=== PATIENT | female | born 1945 | race Hispanic/Latino ===

== ENCOUNTER 2019-12-25 18:34 | Inpatient (IN) | payer MEDICARE ==
[~2019-12-25] VITALS: Ht 152.4 cm; Wt 53.5 kg
[2019-12-25] MEDS ORDERED: SODIUM CHLORIDE 0.9% 1000ML 1,000 ML IV STA (18:51)
[2019-12-25] MEDS ORDERED: ONDANSETRON HCL INJ 2MG/ML 2ML 2 MG/ML VIAL IV STA (18:51)
[2019-12-25] MEDS ORDERED: SODIUM CHLORIDE 0.9% 1000ML 1,000 ML ONE (19:23)
[2019-12-25] MEDS ORDERED: ONDANSETRON HCL INJ 2MG/ML 2ML 2 MG/ML VIAL ONE (19:23)
--- NOTE | 2019-12-25 19:44 | Diagnostic Imaging Report ---
Examination: Single AP view of the chest. COMPARISON: None. INDICATION: Chest pain for 2 months IMPRESSION: 1. Lines and Tubes: None 2. Lungs are well-inflated and grossly clear. No consolidation or effusion. 3. Cardiomediastinal silhouette is normal. Pulmonary vasculature is normal. Tortuous aorta. 4. Generalized osteopenia. No acute bony abnormalities. Deformity multiple right sided ribs. Associated as shaped scoliosis of the thoracolumbar spine. Anterior fusion plate in the lower cervical cervical spine. Signed by: Dr. Kj Medel M.D. on 12/25/2019 7:41 PM
--- NOTE | 2019-12-25 19:50 | Diagnostic Imaging Report ---
EXAMINATION: CT of the abdomen and pelvis without contrast. TECHNIQUE: Spiral CT images of the abdomen and pelvis were performed from the lung bases to the lesser trochanters. No intravenous contrast was given per physician's request. Coronal and sagittal reformatted images were obtained. COMPARISON: None. CLINICAL HISTORY:Nausea, diarrhea, abdominal pain, history of lymphoma DISCUSSION: ABSENCE OF INTRAVENOUS CONTRAST DECREASES SENSITIVITY FOR DETECTION OF FOCAL LESIONS AND VASCULAR PATHOLOGY. ABDOMEN/PELVIS: LOWER THORAX: Unremarkable. HEPATOBILIARY: 1.3 cm simple cyst in hepatic segment IV/II (series 2, image 21). No intra or extrahepatic biliary ductal dilation. GALLBLADDER: No radio-opaque stones or sludge. No wall thickening. SPLEEN: No splenomegaly. PANCREAS: No focal masses or ductal dilatation. ADRENALS: No adrenal nodules. KIDNEYS/URETERS: No renal or ureteral calculi, hydronephrosis or obstruction. No contour abnormalities or perinephric stranding. PELVIC ORGANS/BLADDER: Bladder is unremarkable. No wall thickening or focal lesions. 4-5 mm calcification in the uterine fundus (series 2, images 64 and 66), likely represent small calcified fibroids. Multiple pelvic phleboliths. 1.7 and 1.9 cm fluid density simple appearing cystic lesions in the right ovary (series 2, images 62 and 64). PERITONEUM/RETROPERITONEUM: No free air or fluid. LYMPH NODES: No intra-abdominal,retroperitoneal, pelvic or inguinal lymphadenopathy. VESSELS: Atherosclerotic calcification of the abdominal aorta and iliac vessels. GI TRACT: No bowel dilation or evidence of obstruction. No pericolonic inflammatory changes. Stomach is unremarkable. BONES AND SOFT TISSUES: No aggressive lytic or suspicious focal sclerotic lesions. Generalized osteopenia. Multilevel degenerative disks in the lower thoracic and lumbosacral spine, worse at L5-S1. Levoscoliosis of the thoracolumbar spine. Soft tissues are grossly unremarkable. IMPRESSION: 1. Exam limited by lack of intravenous contrast. Despite limitations, no acute abdominopelvic abnormalities. No bowel dilation or evidence of obstruction. 2. Simple cystic lesions in the right ovary can be further assessed with transvaginal ultrasound on a nonemergent basis. Signed by: Dr. Kj Medel M.D. on 12/25/2019 7:47 PM
--- NOTE | 2019-12-25 20:42 | Emergency Department Note ---
History of Present Illnes History of Present Illness Chief Complaint: General Medicine Complaints History of Present Illness This is a 74 year old female C CC ABDOMINAL PAIN . Historian: Patient, Family Member Arrival Mode: Car Onset (how long ago): day(s) (3) Location: EPIGASTRIC Quality: DULL Radiation: Denies non-radiation, Denies back, Denies neck, Denies extremity, Denies abdomen, Denies periumbilical, Denies flank, Denies proximal, Denies distal, Denies other Severity: moderate Onset quality: gradual Duration (how long): day(s) (3) Timing of current episode: intermittent Progression: waxing and waning Chronicity: new Context: Denies recent illness, Denies recent surgery, Denies recent immobilization, Denies recent travel, Denies trauma/injury, Denies new medications, Denies hx of DVT/PE, Denies non-compliance w/ medications, Denies other Relieving factors: none Exacerbating factors: none Associated symptoms: Reports nausea/vomiting; Denies denies other symptoms, Denies confusion, Denies chest pain, Denies cough, Denies diaphoresis, Denies fever/chills, Denies headaches, Denies loss of appetite, Denies malaise, Denies rash, Denies seizure, Denies shortness of breath, Denies syncope, Denies weakness, Denies other Treatments prior to arrival: none Past Medical/Family History Physician Review I have reviewed the patient's past medical and family history. Any updates have been documented here. Past Medical History Recent Fever: No Clinical Suspicion of Infectio: No New/Unexplained Change in Ment: No Past Medical History: Hypertension, Cancer, GERD Other Medical History: LYMPHOMA Other Surgery: NON SPECIFIC NECK SX LYMPH NODE ON NECK ALSO REMOVED. Social History Smoking Cessation: Never Smoker Counseling Performed: No Alcohol Use: None Any Illegal Drug Use: No Physically hurt or threatened: No Other Any Pre-Existing Lines (PICC,: No Review of Systems Review of Systems Constitutional: Reports no symptoms EENTM: Reports no symptoms Cardiovascular: Reports no symptoms Respiratory: Reports no symptoms Gastrointestinal: Reports as per HPI Genitourinary: Reports no symptoms Musculoskeletal: Reports no symptoms Integumentary: Reports no symptoms Neurological: Reports no symptoms Psychological: Reports no symptoms Endocrine: Reports no symptoms Hematological/Lymphatic: Reports no symptoms Physical Exam Related Data Allergies: Uncoded Allergies: UNKNOWN CHEMO (Allergy, Unknown, 12/25/19) Triage Vital Signs Vital Signs Date Time Temp Pulse Resp B/P (MAP) Pulse Ox O2 Delivery O2 Flow Rate FiO2 12/25/19 18:48 98.2 95 16 180/98 98 Room Air Vital signs reviewed: Yes Physical Exam CONSTITUTIONAL Constitutional: Present well-developed, Present well-nourished HENT HENT: Present normocephalic, Present atraumatic, Present oropharynx clear/moist, Present nose normal HENT L/R: Present left ext ear normal, Present right ext ear normal EYES Eyes: Reports PERRL, Reports conjunctivae normal NECK Neck: Present ROM normal PULMONARY Pulmonary: Present effort normal, Present breath sounds normal CARDIOVASCULAR Cardiovascular: Present regular rhythm, Present heart sounds normal, Present capillary refill normal, Present normal rate GASTROINTESTINAL Abdominal: Present soft, Present nontender, Present bowel sounds normal GENITOURINARY Genitourinary: Present exam deferred SKIN Skin: Present warm, Present dry MUSCULOSKELETAL Musculoskeletal: Present ROM normal NEUROLOGICAL Neurological: Present alert, Present oriented x 3, Present no gross motor or sensory deficits PSYCHOLOGICAL Psychological: Present mood/affect normal, Present judgement normal Results Laboratory Lab results reviewed: Yes Imaging Imaging results reviewed: Yes Procedures 12 Lead ECG Interpretation ECG Interpretation : ECG: ECG 1 Clinical Documentation Specialist: Interpreted by ED physician Date: Dec 25, 2019 Time: 19:09 Rhythm: sinus rhythm Rate: normal BPM: 83 QRS axis: normal ST segments normal: Yes T waves normal: Yes Assessment & Plan Medical Decision Making MDM GASTRITIS GALL STONES Reassessment Reassessment BETTER Assessment & Plan Final Impression: (1) Abdominal pain (2) Uncontrolled hypertension Depart Disposition: HOME, SELF-CARE Last Vital Signs Date Time Temp Pulse Resp B/P (MAP) Pulse Ox O2 Delivery O2 Flow Rate FiO2 12/25/19 19:59 95 15 157/87 98 Room Air 12/25/19 18:48 98.2 Medications in the ED Ondansetron HCl 4 mg NOW STAT IV Last administered on 12/25/19at 19:20; Admin Dose 4 MG; Start 12/25/19 at 18:51; Stop 12/25/19 at 18:57; Status DC Sodium Chloride 1,000 ml @ 0 mls/hr Q0M STAT IV Last administered on 12/25/19at 19:20; Admin Dose 999 MLS/HR; Start 12/25/19 at 18:51; Stop 12/25/19 at 18:53; Status DC Ondansetron HCl 4 mg STK-MED ONCE .ROUTE ; Start 12/25/19 at 19:23; Stop 12/25/19 at 19:18; Status DC Sodium Chloride 1,000 ml @ ud STK-MED ONCE .ROUTE ; Start 12/25/19 at 19:23; Stop 12/25/19 at 19:18; Status DC RONALD CARPIO MD Dec 25, 2019 20:42
[2019-12-25] MEDS ORDERED: CLONIDINE HCL 0.2 MG TAB PO PRN (20:45)
[2019-12-25 21:30] VITALS: BP 149/76
[2019-12-25 22:00] VITALS: BP 149/76
[2019-12-25] MEDS: SODIUM CHLORIDE 0.9% 1000ML 1,000 ML IV SCH (23:28)
[2019-12-26] VITALS (8 sets, daily range): BP systolic 114–141; BP diastolic 70–85
[2019-12-26] MEDS ORDERED: ASPIRIN81 MG PO (00:12)
[2019-12-26] MEDS ORDERED: ATENOLOL25 MG PO (00:12)
[2019-12-26 05:41] LABS: BASOPHILS # (AUTO) 0.1 (0.0-0.1); BASOPHILS % 0.8 % (0.0-1.0); EOSINOPHILS # (AUTO) 0.2 (0.0-0.4); EOSINOPHILS % 3.7 % (0.0-6.0); LYMPHOCYTES % 31.9 % (18.0-39.1); MEAN CORPUSCULAR HEMOGLOBIN 29.6 pg (28-32); MEAN CORPUSCULAR HGB CONC 32.4 g/dL (31-35); MEAN CORPUSCULAR VOLUME 91.1 fL (81-99); MONOCYTES # (AUTO) 0.6 (0.2-0.8); MONOCYTES % 9.7 % (4.4-11.3); NEUTROPHILS # (AUTO) 3.3 (2.1-6.9); NEUTROPHILS % 53.6 % (38.7-80.0); PLATELET COUNT 217 x10e3/uL (140-360); RED BLOOD COUNT 4.06 x10e6/uL (3.6-5.1); RED CELL DISTRIBUTION WIDTH 12.9 % (11.7-14.4)
[2019-12-26 06:00] LABS: ALANINE AMINOTRANSFERASE 14 IU/L (0-55); ALBUMIN 3.6 g/dL (3.5-5.0); ALBUMIN/GLOBULIN RATIO 1.6 (0.8-2.0); ALKALINE PHOSPHATASE 65 IU/L (40-150); BLOOD UREA NITROGEN 10 mg/dL (7-26); BUN/CREATININE RATIO 14 (6-25); CARBON DIOXIDE 26 mmol/L (22-29); CHLORIDE 111 mmol/L (98-107); EST GLOMERULAR FILTRATION RATE > 60 ML/MIN (60-); GLUCOSE 92 mg/dL (74-118); SODIUM 142 mmol/L (136-145)
[2019-12-26] MEDS: SODIUM CHLORIDE 0.9% 1000ML 1,000 ML IV SCH ×3 (06:07→23:20)
--- NOTE | 2019-12-26 07:00 | NUR ---
RECEIVED BEDSIDE SHIFT REPORT FROM OFF GOING NIGHT NURSE. PATIENT IN STABLE CONDITION, NO S/S OF DISTRESS NOTED. RESPIRATIONS EVEN AND NON-LABORED. NO PAIN VOICED. IV SITE ASYMPTOMATIC AND PATENT, TRANSPARENT DRESSING C/D/I. BED IN LOWEST POSITION AND LOCKED, SIDE RAILS X2. CALL LIGHT WITHIN REACH.
--- NOTE | 2019-12-26 07:25 | NUR ---
REPORT GIVEN TO DAYSHIFT. ALERT AND ORIENTED. RESTING IN BED. NO SIGNS IV INFILTRATION. BED LOCKED AND IN LOW POSITION. CALL LIGHT WITHIN REACH.
[2019-12-26] MEDS ORDERED: PNEUMOCOCCAL VACCINE POLYVALENT 23 MCG/0.5 ML VIAL IM SCH (09:00)
[2019-12-26] MEDS ORDERED: INFLUENZA VIRUS VAC SPLIT INJ 0.5 ML SYR IM SCH (09:00)
[2019-12-26] MEDS: FAMOTIDINE 20 MG/2 ML VIAL IV SCH ×2 (09:11→17:02)
--- OUTSIDE RECORDS SUMMARY | 2019-12-26 10:33 | XMS REPORT | Continuity of Care Document ---
Author Author [facility] t Organization [facility] Address [address] [place] [address] Phone Unavailable Care Team Providers Care Bow Maker Custom Name Role Phone YOUSIF RUIZ PCP Unavailable RONALD CARPIO Attphys Unavailable YOUSIF RUIZ Attphys Unavailable KASEY GUAN Attphys Unavailable MARY DUBOSE Attphyjessenia Unavailable Payers Payer Name Policy Type Policy Number Effective Date Expiration Date S donna [employer] CHO[employer] MEDICARE PPO [id number] 2015 00:00:00 Problems This patient has no known problems. Allergies, Adverse Reactions, Alerts Allergy Name Allergy Type Status Severity Reaction(s) Onset Date Inacti ve Date Treating Clinician Comments Source No Known Allergies DA Active U 2013-11-09 00:00:[address] [facility] Medications This patient has no known medications. Vital Signs Vital Name Observation Time Observation Value Comments Source WEIGHT 2019-12-17 14:59:00 55.2 kg Procedures This patient has no known procedures. Encounters Start Date/Time End Date/Time [facility] ID Source 2019-12-17 16:00:00 2019-12-17 23:59:00 Outpatient YOUSIF SMITH MDA, MDA [id number] [place] 2019-12-17 14:51:36 2019-12-17 16:05:44 Outpatient REMBERTO WHEELER MDA, MDA [id number] [place] 2019-12-17 14:38:26 2019-12-17 15:59:00 Outpatient JORDAN PARRA MDA, MDA [id number] [facility] 2019-12-05 09:52:54 2019-12-05 09:52:54 Outpatient ZEKE GRACY JORDAN Mason MDA MDA [id number] MD Carmen 2019-12-04 13:01:30 2019-12-04 13:59:17 Outpatient YOUSIF SMITH MDA MDA [id number] [place] 2019-11-27 00:00:00 2019-11-27 00:00:00 Outpatient ZEKE DENISE DUBOSEMARQUIS Marlon ARREOLA MDA [id number] [place] 2019-11-27 00:00:00 2019-11-27 00:00:00 Outpatient YOUSIF SMITH MDA MDA [id number] MD Carmen 2019-11-26 16:06:23 2019-11-26 23:59:00 Outpatient JORDAN PARRA MDA MDA [id number] [place] 2019-11-26 15:44:34 2019-11-26 16:05:00 Outpatient ZEKE JORDAN DUBOSE MDA MDA [id number] MD Carmen Results Test Description Test Time Test Comments Results Result Comments Source CT ABD/PEL WO CONTRAST-HOPD 2019-12-25 19:41:00 [place] [address] Patient Name: GALILEO ALMANZA MR #: [id number] : 1945 Age/Sex: 74/F Req #: [id number] [facility] Physician: Ordered by: RONALD CARPIO MD Report #: [id number] Location: [facility] Room/Bed: Procedure: [id number] HOPD/CT ABD/PEL WO CONTRAST-HOPD Exam Date: 12/25/19 Exam Time: 1929 REPORT STATUS: Signed EXAMINATION: CT of the abdomen and pelvis without contrast. TECHNIQUE: Spiral CT images of the abdomen and pelvis were performed from the lung bases to the lesser trochanters. No intravenous contrast was given per physician's request. Coronal and sagittal reformatted images were obtained. COMPARISON: None. CLINICAL HISTORY:Nausea, diarrhea, abdominal pain, history of lymphoma DISCUSSION: ABSENCE OF INTRAVENOUS CONTRAST DECREASES SENSITIVITY FOR DETECTION OF FOCAL LESIONS AND VASCULAR PATHOLOGY. ABDOMEN/PELVIS: LOWER THORAX: Unremarkable. HEPATOBILIARY: 1.3 cm simple cyst in hepatic segment IV/II (series 2, image 21). No intra or extrahepatic biliary ductal dilation. GALLBLADDER: No radio-opaque stones or sludge. No wall thickening. SPLEEN: No splenomegaly. PANCREAS: No focal masses or ductal dilatation. ADRENALS: No adrenal nodules. KIDNEYS/URETERS: No renal or ureteral calculi, hydronephrosis or obstruction. No contour abnormalities or perinephric stranding. PELVIC ORGANS/BLADDER: Bladder is unremarkable. No wall thickening or focal lesions. 4-5 mm calcification in the uterine fundus (series 2, images 64 and 66), likely represent small calcified fibroids. Multiple pelvic phleboliths. 1.7 and 1.9 cm fluid density simple appearing cystic lesions in the right ovary (series 2, images 62 and 64). PERITONEUM/RETROPERITONEUM: No free air or fluid. LYMPH NODES: No intra- abdominal,retroperitoneal, pelvic or inguinal lymphadenopathy. VESSELS: Atherosclerotic calcification of the abdominal aorta and iliac vessels. GI TRACT: No bowel dilation or evidence of obstruction. No pericolonic inflammatory changes. Stomach is unremarkable. BONES AND SOFT TISSUES: No aggressive lytic or suspicious focal sclerotic lesions. Generalized osteopenia. Multilevel degenerative disks in the lower thoracic and lumbosacral spine, worse at L5-S1. Levoscoliosis of the thoracolumbar spine. Soft tissues are grossly unremarkable. IMPRESSION: 1. Exam limited by lack of intravenous contrast. Despite limitations, no acute abdominopelvic abnormalities. No bowel dilation or evidence of obstruction. 2. Simple cystic lesions in the right ovary can be further assessed with transvaginal ultrasound on a nonemergent basis. Signed by: Dr. Kj Medel M.D. on 12/25/2019 7:47 PM Dictated By: KJ MEDEL MD 46 Transcribed By: SULMA on 12/25/191946 COPY TO: RONALD CARPIO MD CXR 1 [facility] 2019-12-25 19:40:00 [place] [address] Patient Name: GALILEO ALMANZA MR #: [id number] : 1945 Age/Sex: 74/F Req #: [id number] Adm Physician: Ordered by: RONALD CARPIO MD Report #: [id number] Location: [facility] Room/Bed: Procedure: [id number] [facility] Exam Date: 12/25/19 Exam Time: 1929 REPORT STATUS: Signed Examination: Single AP view of the chest. COMPARISON: None. INDICATION: Chest pain for 2 months IMPRESSION: 1. Lines and Tubes: None 2. Lungs are well-inflated and grossly clear. No consolidation or effusion. 3. Cardiomediastinal silhouette is normal. Pulmonary vasculature is normal. Tortuous aorta. 4. Generalized osteopenia. No acute bony abnormalities. Deformity multiple right sided ribs. Associated as shaped scoliosis of the thoracolumbar spine. Anterior fusion plate in the lower cervical cervical spine. Signed by: Dr. Kj Medel M.D. on 12/25/2019 7:41 PM Dictated By: KJ MEDEL MD 40 Transcribed By: SULMA on 12/25/191940 COPY TO: RONALD CARPIO MD
--- OUTSIDE RECORDS SUMMARY | 2019-12-26 10:35 | XMS REPORT | Continuity of Care Document ---
Author Author [facility] t Organization [facility] Address [address] [place] [address] Phone Unavailable Care Team Providers Care Machine Straw Hat Presser Name Role Phone YOUSIF RUIZ PCP Unavailable RONALD CARPIO Attphys Unavailable YOUSIF RUIZ Attphys Unavailable KASEY GUAN Attphys Unavailable MARY DUBOSE Attphyjessenia Unavailable Payers Payer Name Policy Type Policy Number Effective Date Expiration Date S donna [employer] CHOICE MEDICARE PPO [id number] 2015 00:00:00 Problems This patient has no known problems. Allergies, Adverse Reactions, Alerts Allergy Name Allergy Type Status Severity Reaction(s) Onset Date Inacti ve Date Treating Clinician Comments Source No Known Allergies DA Active U 2013-11-09 00:00:00 [facility] Medications This patient has no known medications. Vital Signs Vital Name Observation Time Observation Value Comments Source WEIGHT 2019-12-17 14:59:00 55.2 kg Procedures This patient has no known procedures. Encounters Start Date/Time End Date/Time [facility] En[facility] ID Source 2019-12-17 16:00:00 2019-12-17 23:59:00 Outpatient YOUSIF SMITH MDA, MDA [id number] [place] 2019-12-17 14:51:36 2019-12-17 16:05:44 Outpatient REMBERTO WHEELER MDA, MDA [id number] [place] 2019-12-17 14:38:26 2019-12-17 15:59:00 Outpatient JORDAN PARRA MDA, MDA [id number] [facility] 2019-12-05 09:52:54 2019-12-05 09:52:54 Outpatient ZEKE GRACY JORDAN Mason MDA MDA [id number] MD Carmen 2019-12-04 13:01:30 2019-12-04 13:59:17 Outpatient YOUSIF SMITH MDA MDA [id number] [place] 2019-11-27 00:00:00 2019-11-27 00:00:00 Outpatient ZEKE DENISE DUBOSEMARQUIS Marlon ARREOLA MDA [id number] [place] 2019-11-27 00:00:00 2019-11-27 00:00:00 Outpatient YOUSIF SMITH MDA MDA [id number] MD Carmen 2019-11-26 16:06:23 2019-11-26 23:59:00 Outpatient JORDAN PARRA MDA MDA [id number] [place] 2019-11-26 15:44:34 2019-11-26 16:05:00 Outpatient ZEKE JORDAN DUBOSE MDA MDA [id number] MD Carmen Results Test Description Test Time Test Comments Results Result Comments Source CT ABD/PEL WO CONTRAST-HOPD 2019-12-25 19:41:00 [place] [address] Patient Name: GALILEO ALMANZA MR #: [id number] : 1945 Age/Sex: 74/F Req #: [id number] [facility] Physician: Ordered by: RONALD CARPIO MD Report #: [id number] Location: [facility] Room/Bed: Procedure: [id number] HOPD/CT ABD/PEL WO CONTRAST-HOPD Exam Date: 12/25/19 [...] COPY TO: RONALD CARPIO MD CXR 1 [facility] 2019-12-25 19:40:00 [place] [address] Patient Name: GALILEO ALMANZA MR #: [id number] : 1945 Age/Sex: 74/F Req #: [id number] Adm Physician: Ordered by: RONALD CARPIO MD Report #: [id number] Location: [facility] Room/Bed: Procedure: [id number] [facility] Ex[facility] Date: 12/25/19 Exam Time: 1929 REPORT [...]
--- NOTE | 2019-12-26 19:21 | NUR ---
COMPLETED BEDSIDE SHIFT REPORT AND ROUNDING WITH ONCOMING NIGHT NURSE. PATIENT IN STABLE CONDITION, NO S/S OF DISTRESS NOTED. RESPIRATIONS EVEN AND NON-LABORED. NO PAIN VOICED. IV FLUIDS INFUSING, SITE ASYMPTOMATIC AND PATENT, TRANSPARENT DRESSING C/D/I. BED IN LOWEST POSITION AND LOCKED, SIDE RAILS X2. CALL LIGHT WITHIN REACH.
--- NOTE | 2019-12-26 19:39 | NUR ---
CALLED MD CARSON REGARDING NEW CONSULT. AWAITING CALL BACK.
--- NOTE | 2019-12-26 20:10 | NUR ---
SPOKE TO MD CARSON. AWARE NEW CONSULT.
[2019-12-27] VITALS (8 sets, daily range): BP systolic 116–140; BP diastolic 68–88
--- NOTE | 2019-12-27 00:14 | NUR ---
MD CARSON AT BEDSIDE. NEW ORDERS RECEIVED.
--- NOTE | 2019-12-27 03:00 | NUR ---
PATIENT OFF UNIT FOR DIAGNOSTIC SCAN.
--- NOTE | 2019-12-27 05:38 | NUR ---
SPOKE TO MD BERRY. NEW ORDERS RECEIVED.
[2019-12-27] MEDS ORDERED: MORPHINE SULFATE 2 MG/ML SYR 1ML IV ONE (05:45)
--- NOTE | 2019-12-27 06:54 | Diagnostic Imaging Report ---
Hepatobiliary Scan with Gallbladder Ejection Fraction Reason for exam: Uncontrolled abdominal pain Technique: Following intravenous administration of 5.8 millicuries of Tc-99m mebrofenin, dynamic images of the abdomen in the anterior projection were obtained through 60 minutes. Additional static images were obtained at 90 minutes and 2 hours. Sincalide (CCK analog) 1.1 micrograms was administered intravenously over 30 minutes with additional imaging for determination of gallbladder ejection fraction. Discussion: Perfusion of the liver is normal. Extraction of tracer by the liver parenchyma is normal. Tracer appears promptly within the biliary tract. Tracer is seen in the small bowel by 24 minutes post injection of tracer. The gallbladder did not fill during the initial 60-minute dynamic sequence but did fill by 2 hours.. No contractile response by the gallbladder and no emptying of the gallbladder occurs with administration of sincalide. Impression: 1. Filling of the gallbladder excludes acute cystic duct obstruction/acute cholecystitis. 2. The gallbladder ejection fraction is undefined as there is no emptying of the gallbladder during the infusion of sincalide. This absence of a contractile response to sincalide supports the clinical diagnosis of chronic cholecystitis/gallbladder dyskinesia. Signed by: Dr. Sheridan Castro M.D. on 12/27/2019 6:51 AM
--- NOTE | 2019-12-27 07:00 | NUR ---
RECEIVED BEDSIDE SHIFT REPORT FROM OFF GOING NIGHT NURSE. PATIENT IN STABLE CONDITION, NO S/S OF DISTRESS NOTED. RESPIRATIONS EVEN AND NON-LABORED. NO PAIN VOICED. IV SITE ASYMPTOMATIC AND PATENT, TRANSPARENT DRESSING C/D/I. BED IN LOWEST POSITION AND LOCKED, SIDE RAILS X2, NONSKID SOCKS APPLIED. CALL LIGHT WITHIN REACH.
--- NOTE | 2019-12-27 07:08 | NUR ---
Notified Tri Garcia NP that today is Day 2 Obs. She stated Cece KIMBALL will be seeing pt today, and she will notify her and give her CM cell.
--- NOTE | 2019-12-27 07:08 | NUR ---
REPORT GIVEN TO DAYSHIFT NURSE. ALERT AND ORIENTED. RESTING IN BED. NO SIGNS IV INFILTRATION. BED LOCKED AND IN LOW POSITION. SR UPX2. CALL LIGHT WITHIN REACH.
--- NOTE | 2019-12-27 07:52 | NUR ---
PATIENT OFF THE UNIT @ 0752 WENT TO THE OR VIA STRETCHER. PATIENT LEFT IN STABLE CONDITION, NO S/S OF DISTRESS NOTED. NO PAIN VOICED. RESPIRATIONS EVEN AND NONLABORED. ABLE TO VOICE NEEDS.
[2019-12-27 07:57] LABS: BASOPHILS % 0.8 % (0.0-1.0); EOSINOPHILS # (AUTO) 0.2 (0.0-0.4); EOSINOPHILS % 3.3 % (0.0-6.0); HEMATOCRIT 37.4 % (34.2-44.1); HEMOGLOBIN 12.2 g/dL (12.0-16.0); LYMPHOCYTES # (AUTO) 1.4 (1.0-3.2); MEAN CORPUSCULAR HEMOGLOBIN 29.4 pg (28-32); MEAN CORPUSCULAR HGB CONC 32.6 g/dL (31-35); MEAN CORPUSCULAR VOLUME 90.1 fL (81-99); MONOCYTES # (AUTO) 0.4 (0.2-0.8); MONOCYTES % 8.8 % (4.4-11.3); NEUTROPHILS # (AUTO) 2.9 (2.1-6.9); NEUTROPHILS % 58.9 % (38.7-80.0); PLATELET COUNT 218 x10e3/uL (140-360); RED BLOOD COUNT 4.15 x10e6/uL (3.6-5.1); RED CELL DISTRIBUTION WIDTH 12.8 % (11.7-14.4)
[2019-12-27 08:18] LABS: ANION GAP 10.6 mmol/L (8-16); BLOOD UREA NITROGEN 7 mg/dL (7-26); BUN/CREATININE RATIO 10 (6-25); CALCIUM 8.2 mg/dL (8.4-10.2); CARBON DIOXIDE 26 mmol/L (22-29); CHLORIDE 109 mmol/L (98-107); CREATININE, SERUM 0.67 mg/dL (0.57-1.11); EST GLOMERULAR FILTRATION RATE > 60 ML/MIN (60-); GLUCOSE 82 mg/dL (74-118); POTASSIUM 3.6 mmol/L (3.5-5.1); SODIUM 142 mmol/L (136-145)
--- NOTE | 2019-12-27 08:26 | NUR ---
[employer] [employer] SPECIALIST CALLED CM AND STATED PT NEED GI WORK UP DUE TO HX OF CANCER. PT WILL BE DC'D OR ADMITTED TO INPATIENT PENDING GI FINDINGS. PT IS NPO FOR EGD FOR TODAY.
--- NOTE | 2019-12-27 09:14 | Operative Report ---
DATE OF PROCEDURE: 12/27/2019 SURGEON: Kyrie Salazar MD PROCEDURE: Esophagogastroduodenoscopy with biopsies. ADDITIONAL REFERRING PHYSICIAN: Marc Tadeo M.D. INDICATIONS FOR EGD: Upper abdominal pain, nausea, and vomiting. MEDICATIONS: The patient was done under MAC, please see anesthesiologist's note. PROCEDURE IN DETAIL: With the patient in left lateral decubitus position, flexible fiberoptic Olympus gastroscope was introduced into the esophagus under direct visualization without any difficulty. There was some patchy erythema noted in distal esophagus. The scope was then advanced with ease into the stomach, traversing a small sliding hiatal hernia. Mucosa overlying the antrum and the body revealed some patchy erythema and [id number] edema, and biopsies were obtained and sent to stain for H pylori. The pylorus was intubated with ease and the scope was advanced all the way to the second portion of the duodenum. Biopsies were obtained from the proximal second portion and duodenal bulb to rule out sprue. The scope was then withdrawn back into the stomach and retroflexed mucosa overlying the fundus and cardia appeared to be within normal limits. The scope was then straightened out, it was subsequently withdrawn. The patient tolerated the procedure well. IMPRESSION: 1. Distal esophagitis, mild. 2. Small sliding hiatal hernia. 3. Gastritis, biopsied, biopsies sent to stain for H pylori. 4. Rule out sprue. PLAN: Follow up histology. Initiate PPI therapy. Findings do not necessarily explain the patient's epigastric pain. I will ask Dr. Cortes to see. Kyrie Salazar MD [facility] /[id number] cc: MD Delta Prasad MD
--- NOTE | 2019-12-27 09:37 | NUR ---
CONSULT CALLED FOR [facility], DR. Neetu ALMANZA IS GEOSPATIAL TECHNICIAN THIS WEEKEND FOR DR. Paola ALMANZA.
--- NOTE | 2019-12-27 09:51 | NUR ---
PATIENT ARRIVED BACK ON THE UNIT VIA STRETCHER. PATIENT IN STABLE CONDITION, NO S/S OF DISTRESS NOTED. RESPIRATIONS EVEN AND NONLABORED. IV SITE PATENT AND ASYMPTOMATIC, TRANSPARENT DRESSING C/D/I. PATIENT ABLE TO VOICE NEEDS. NO PAIN OR DISCOMFORT VOICED.
[2019-12-27] MEDS: PANTOPRAZOLE 40 MG 10ML VIAL IV SCH ×2 (09:52→20:45)
--- NOTE | 2019-12-27 12:00 | NUR ---
RADIOLOGY CONTACTED ABOUT THE STAT GALLBLADDER ULTRASOUND.
--- NOTE | 2019-12-27 12:19 | Consultation ---
DATE OF CONSULTATION: 12/27/2019 REASON FOR CONSULTATION: Cholecystitis. HISTORY OF PRESENT ILLNESS: The patient is a very pleasant 74-year-old female admitted through the emergency room, complaining of abdominal pain for several days. She states that for several months now has had a history of recurrent upper abdominal pain associated with ingestion of greasy foods. About a month ago, she saw a senior software development engineer, who evaluated her and cleared her from a cardiac point of view for any type of relationship of the pain to the heart. Since admission, she had a HIDA scan that revealed nonvisualization of the gallbladder and an EGD by Dr. Kyrie Salazar that revealed some gastritis, but nothing to explain her pain. A CT scan upon admission shows no acute process also. Her admission chemistries and liver chemistries are normal. Her white count is normal. Platelet count is normal. Hematocrit is 37. COVID test is negative. 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 Subsequent to that, she has had hoarseness. The patient about 11 years ago was diagnosed with lymphoma, treated with chemotherapy and excision of a mass of the left side of the neck. About 4 weeks ago, she developed recurrence, which is asymptomatic with according to her is the lymph nodes of the abdomen. She elected not to have repeat chemotherapy. PAST SURGICAL HISTORY: The previous surgeries as stated, she had biopsy and excision of a neck mass. CURRENT MEDICATIONS: See nurse's list. PHYSICAL EXAMINATION: GENERAL: Reveals 74-year-old female, in no acute distress. HEAD, EARS, AND NECK: Revealed a scar in the left neck. The neck is supple. There is no adenopathy. HEART: Reveals regular sinus rhythm. LUNGS: Clear. ABDOMEN: Soft and nontender. EXTREMITIES: Reveal no clubbing, cyanosis, or edema. NEUROLOGICAL: Nonfocal. ASSESSMENT: Cholecystitis with zero ejection fraction by HIDA scan. The symptoms are consistent with the HIDA scan as well as the source of the pain. She has not had an ultrasound upon this admission, which I will be ordering. I have discussed with the patient indication for surgery, benefit, and risks. She agrees to proceed with surgery and I will notify the attending of the plans to perform surgery tomorrow as well as son. MD TAJ Alvarez/CRISTIAN /[id number]
[2019-12-27] MEDS ORDERED: PROPOFOL IV EMULSION 10 MG/ML 20 ML VIAL ONE (12:40)
[2019-12-27] MEDS ORDERED: FENTANYL CITRATE/PF 100MCG/2 ML INJ ONE (12:55)
[2019-12-27] MEDS ORDERED: MIDAZOLAM HCL 2 MG/2 ML VIAL ONE (12:55)
--- NOTE | 2019-12-27 15:09 | Diagnostic Imaging Report ---
EXAM: Gallbladder Ultrasound INDICATION: ^abdomen pain ^[id number] ^[id number] COMPARISON: CT abdomen/pelvis 12/25/2019 TECHNIQUE: Transverse and longitudinal images of the gallbladder were obtained. FINDINGS: Liver: Anechoic simple cyst along the anterior aspect of the right hepatic lobe measures up to 1.3 cm. No additional hepatic abnormalities given limited evaluation. Gallbladder: Stones/Sludge: Gallbladder filled with sludge and multiple stones. Wall: 0.2 cm Appearance: No wall thickening, pericholecystic fluid or hydrops. Sonographic Caraballo's Sign: Negative Bile Ducts: Intrahepatic Ducts: No dilatation Extrahepatic Ducts: Common bile duct measures 0.5 cm, no dilatation Limited evaluation of the right kidney is unremarkable. Free Fluid: No ascites or pleural effusion IMPRESSION: Gallbladder filled with stones and sludge however no sonographic evidence to suggest acute cholecystitis. Signed by: Dr. Yaya Rawls M.D. on 12/27/2019 3:06 PM
--- NOTE | 2019-12-27 19:13 | NUR ---
COMPLETED BEDSIDE SHIFT REPORT AND ROUNDING WITH ONCOMING NIGHT NURSE. PATIENT IN STABLE CONDITION, NO S/S OF DISTRESS NOTED. RESPIRATIONS EVEN AND NON-LABORED. NO PAIN VOICED. IV SITE ASYMPTOMATIC AND PATENT, TRANSPARENT DRESSING C/D/I. BED IN LOWEST POSITION AND LOCKED, SIDE RAILS X2, NONSKID SOCKS APPLIED. CALL LIGHT WITHIN REACH.
--- NOTE | 2019-12-27 19:15 | NUR ---
Patient visited in room during nursing rounds. Patient alert and oriented x3. Ambulatory in room prn. On IVF (NS at 125ml/hr). Pt aware she will be NPO at midnight and will have surgery (Laparoscopic Cholecystectomy with possible open cholecystectomy) tomorrow (12/28/19) at [address] Brian Cortes. Call anne within reach. Will monitor closely.
[2019-12-27] MEDS: SODIUM CHLORIDE 0.9% 1000ML 1,000 ML IV SCH (20:45)
[2019-12-28] VITALS (9 sets, daily range): BP systolic 107–151; BP diastolic 65–78
[2019-12-28] MEDS: SODIUM CHLORIDE 0.9% 1000ML 1,000 ML IV SCH (05:00)
[2019-12-28 06:39] LABS: BASOPHILS % 0.7 % (0.0-1.0); EOSINOPHILS # (AUTO) 0.2 (0.0-0.4); EOSINOPHILS % 3.8 % (0.0-6.0); HEMATOCRIT 37.6 % (34.2-44.1); HEMOGLOBIN 12.5 g/dL (12.0-16.0); LYMPHOCYTES # (AUTO) 1.6 (1.0-3.2); LYMPHOCYTES % 27.8 % (18.0-39.1); MEAN CORPUSCULAR HEMOGLOBIN 30.4 pg (28-32); MEAN CORPUSCULAR HGB CONC 33.2 g/dL (31-35); MEAN CORPUSCULAR VOLUME 91.5 fL (81-99); MONOCYTES # (AUTO) 0.5 (0.2-0.8); MONOCYTES % 8.6 % (4.4-11.3); NEUTROPHILS # (AUTO) 3.4 (2.1-6.9); NEUTROPHILS % 58.9 % (38.7-80.0); PLATELET COUNT 210 x10e3/uL (140-360); RED BLOOD COUNT 4.11 x10e6/uL (3.6-5.1); RED CELL DISTRIBUTION WIDTH 12.8 % (11.7-14.4)
[2019-12-28 06:57] LABS: ANION GAP 12.9 mmol/L (8-16); BLOOD UREA NITROGEN 7 mg/dL (7-26); BUN/CREATININE RATIO 9 (6-25); CARBON DIOXIDE 24 mmol/L (22-29); CHLORIDE 108 mmol/L (98-107); CREATININE, SERUM 0.74 mg/dL (0.57-1.11); EST GLOMERULAR FILTRATION RATE > 60 ML/MIN (60-); GLUCOSE 74 mg/dL (74-118); POTASSIUM 3.9 mmol/L (3.5-5.1); SODIUM 141 mmol/L (136-145)
--- NOTE | 2019-12-28 07:00 | NUR ---
RECEIVED BEDSIDE SHIFT REPORT FROM OFF GOING NIGHT NURSE. PATIENT IN STABLE CONDITION, NO S/S OF DISTRESS NOTED. RESPIRATIONS EVEN AND NON-LABORED. NO PAIN VOICED. IV FLUIDS INFUSING, SITE ASYMPTOMATIC AND PATENT, TRANSPARENT DRESSING C/D/I. BED IN LOWEST POSITION AND LOCKED, SIDE RAILS X2, NONSKID SOCKS APPLIED. CALL LIGHT WITHIN REACH.
--- NOTE | 2019-12-28 07:47 | NUR ---
SURGEON SAW PT 12/26 AND HAS SCHEDULED PT FOR SURGERY: LAP DILMA W/ POSS OPEN. DAY 3 OBSERVATION DC PLAN PENDING SURGICAL OUTCOME.
[2019-12-28] MEDS: PANTOPRAZOLE 40 MG 10ML VIAL IV SCH ×2 (09:00→21:15)
[2019-12-28] MEDS ORDERED: BUPIVACAINE 0.25% 30ML SDV INJ ONE (09:27)
--- NOTE | 2019-12-28 09:40 | NUR ---
PATIENT OFF THE UNIT @ 0940 TO THE OR VIA STRETCHER. PATIENT LEFT THE UNIT IN STABLE CONDITION, NO S/S OF DISTRESS NOTED. NO PAIN VOICED. ABLE TO VOICE NEEDS.
[2019-12-28] MEDS: D5.45%NS/KCL 20MEQ 1,000 ML IV SCH (11:30)
[2019-12-28] MEDS ORDERED: ONDANSETRON HCL INJ 2MG/ML 2ML 2 MG/ML VIAL IV PRN (11:30)
[2019-12-28] MEDS ORDERED: TRAMADOL HCL 50 MG TAB PO PRN (11:30)
[2019-12-28] MEDS ORDERED: FENTANYL CITRATE/PF 100MCG/2 ML INJ ONE ×2 (11:52→13:00)
--- NOTE | 2019-12-28 11:59 | Operative Report ---
DATE OF PROCEDURE: 12/28/2019 SURGEON: Brian Cortes MD PREOPERATIVE DIAGNOSES: Cholelithiasis, cholecystitis, history of lymphoma, history of vocal cord cancer, treated with radiation. POSTOPERATIVE DIAGNOSES: Cholelithiasis, cholecystitis, history of lymphoma, history of vocal cord cancer, treated with radiation. PROCEDURE PERFORMED: Laparoscopic cholecystectomy. MAIL SERVICE COORDINATOR: NIGHAT Chahal ESTIMATED BLOOD LOSS: Minimal. DRAINS: None. COMPLICATIONS: None. INDICATION AND FINDINGS: The patient is a pleasant 74-year-old female, who was admitted to the hospital from the emergency room complaining of upper abdominal pain. Work up revealed cholelithiasis with [address] scan was unremarkable. EGD revealed gastritis that did not explain her pain. Intraoperative findings were cholelithiasis, chronic cholecystitis, and several adhesions of the gallbladder to the omentum. There was no ductal dilatation. DESCRIPTION OF PROCEDURE: With the patient lying on the operative table in the supine position, after administration of general anesthesia, she was prepped and draped for laparoscopic cholecystectomy. The procedure was begun by establishing the pneumoperitoneum in the umbilical site after stab wound was made in that location and saline drop test was performed. A pneumoperitoneum was insufflated to 15 mm of pressure and then the 10/11 trocar was placed in that location under direct vision with the camera. We placed a 10/11 subxiphoid trocar as well as two lateral working ports 5 mm each in the right midclavicular line and right anterior axillary line. The camera introduced. The gallbladder was retracted cephalad and laterally through the graspers to lateral working ports and then the dissection was begun high in the neck of the gallbladder until we exposed the cystic duct. The common bile duct junction was identified 360 degrees circumferentially. The cystic artery was identified and then we clipped the cystic duct twice distally, once proximally as well as the cystic artery and then we took the gallbladder down from the liver bed using electrocautery dissection with a scissors. The gallbladder was detached and removed through the umbilical port. After we did that, we reinspected the operative field. There was no bleeding, no bile leak, no apparent bowel injury. We irrigated the right lower quadrant until the effluent was clear. Again did not see any evidence of bile leak, bleeding, or apparent bowel injury. At this point, we released the pneumoperitoneum and closed the wounds using 0-Vicryl for the umbilical fascia and 3-0 Vicryl for the subcutaneous tissue in that location as well as the subxiphoid port and the skin of all the ports was closed with erica. The patient tolerated the procedure well, was taken to recovery room in stable condition. MD TAJ Alvarez/CRISTIAN /[id number]
--- NOTE | 2019-12-28 12:10 | NUR ---
RCD PT FROM PACU BY BED PT IS ALERT AND ORIENTED DRESSING INTACT ,IV PATENT VITALS CHECKED FAMILY AT BED SIDE ,BED LOW AND LOCKED CALL LIGHT IN REACH,PT VOIDED
[2019-12-28] MEDS ORDERED: ONDANSETRON HCL INJ 2MG/ML 2ML 2 MG/ML VIAL ONE ×2 (12:13→13:20)
[2019-12-28] MEDS: HYDROMORPHONE 1MG/1ML INJ IV PRN ×3 (12:39→21:10)
[2019-12-28] MEDS: ONDANSETRON HCL INJ 2MG/ML 2ML 2 MG/ML VIAL IV PRN ×2 (12:40→17:29)
[2019-12-28] MEDS ORDERED: MIDAZOLAM HCL 2 MG/2 ML VIAL ONE (13:00)
[2019-12-28] MEDS ORDERED: SEVOFLURANE INHAL SOLN 250 ML PEN BTL ONE (13:20)
[2019-12-28] MEDS ORDERED: KETOROLAC TROMETHAMINE 30 MG/ML VIAL ONE (13:20)
[2019-12-28] MEDS ORDERED: CEFAZOLIN SOD 1 GM VIAL ONE (13:20)
[2019-12-28] MEDS ORDERED: ROCURONIUM BROMIDE 10 MG/ML 5ML VIAL IV ONE (13:20)
[2019-12-28] MEDS ORDERED: PROPOFOL IV EMULSION 10 MG/ML 20 ML VIAL ONE (13:20)
[2019-12-28] MEDS ORDERED: DEXAMETHASONE SOD PHOS INJ 4 MG/ML VIAL ONE (13:20)
[2019-12-28] MEDS ORDERED: LIDOCAINE HCL 2% LOCAL INJ 5 ML SDV VIAL INJ ONE (13:20)
[2019-12-28] MEDS: CEFAZOLIN SOD 1 GM/NS 50ML 50 ML IV SCH ×2 (14:00→22:07)
[2019-12-28] MEDS ORDERED: HYDRALAZINE HCL 20 MG/ML VIAL IV PRN (17:30)
[2019-12-28] MEDS ORDERED: ACETAMINOPHEN 325 MG TAB PO PRN (17:30)
--- NOTE | 2019-12-28 18:42 | NUR ---
PT RESTING ON BED BED SIDE REPORT GIVEN TO ONCOMING NURSE
[2019-12-29] VITALS (8 sets, daily range): BP systolic 127–157; BP diastolic 66–84
[2019-12-29] MEDS: HYDROMORPHONE 1MG/1ML INJ IV PRN ×3 (00:35→20:33)
[2019-12-29] MEDS: D5.45%NS/KCL 20MEQ 1,000 ML IV SCH ×2 (00:48→14:18)
[2019-12-29 05:21] LABS: BASOPHILS % 0.2 % (0.0-1.0); EOSINOPHILS % 0.2 % (0.0-6.0); HEMATOCRIT 36.1 % (34.2-44.1); HEMOGLOBIN 12.1 g/dL (12.0-16.0); LYMPHOCYTES # (AUTO) 1.7 (1.0-3.2); LYMPHOCYTES % 14.3 % (18.0-39.1); MEAN CORPUSCULAR HEMOGLOBIN 29.5 pg (28-32); MEAN CORPUSCULAR HGB CONC 33.5 g/dL (31-35); MONOCYTES # (AUTO) 1.1 (0.2-0.8); MONOCYTES % 9.3 % (4.4-11.3); NEUTROPHILS # (AUTO) 8.9 (2.1-6.9); NEUTROPHILS % 75.5 % (38.7-80.0); PLATELET COUNT 219 x10e3/uL (140-360); RED CELL DISTRIBUTION WIDTH 12.7 % (11.7-14.4)
[2019-12-29 05:39] LABS: ANION GAP 12.7 mmol/L (8-16); BLOOD UREA NITROGEN 7 mg/dL (7-26); BUN/CREATININE RATIO 9 (6-25); CALCIUM 8.3 mg/dL (8.4-10.2); CARBON DIOXIDE 25 mmol/L (22-29); CHLORIDE 101 mmol/L (98-107); CREATININE, SERUM 0.78 mg/dL (0.57-1.11); EST GLOMERULAR FILTRATION RATE > 60 ML/MIN (60-); GLUCOSE 114 mg/dL (74-118); POTASSIUM 3.7 mmol/L (3.5-5.1); SODIUM 135 mmol/L (136-145)
[2019-12-29] MEDS: ONDANSETRON HCL INJ 2MG/ML 2ML 2 MG/ML VIAL IV PRN ×2 (08:42→18:01)
[2019-12-29] MEDS: PANTOPRAZOLE 40 MG 10ML VIAL IV SCH ×2 (08:53→20:33)
[2019-12-29] MEDS ORDERED: BISACODYL 10 MG SUPP PR ONE (17:15)
--- NOTE | 2019-12-29 19:09 | NUR ---
WALKING ROUNDS PERFORMED, RECEIVED PT LAYING SEMI FOWLERS IN BED, AAOX3, RR EVEN AND NON-LABORED, ON ROOM AIR. PT REPORTS PAIN TO ANTERIOR ABD, ABDOMINAL SURGICAL DRESSINGS X4 NOTED TO BE CDI. LEFT PT LAYING SEMI FOWLERS IN BED, BED IN LOW LOCKED POSITION, SIDE RAILS UPX2, CALL LIGHT AND PHONE WITHIN REACH.
[2019-12-30] VITALS (8 sets, daily range): BP systolic 130–155; BP diastolic 75–94
--- NOTE | 2019-12-30 01:51 | Progress Note ---
DATE: 12/29/2019 CONSULTING PHYSICIANS: Dr. Jules Cortes with Surgery and Dr. Kyrie Salazar with Gastroenterology. SUBJECTIVE: Nausea, experienced this morning. The patient is concerned about her grandchildren. She denies chills. No trouble swallowing. She did have some phlegm today. She is having burping with flatus and nausea one bowel movement today. PHYSICAL EXAMINATION: VITAL SIGNS: Temperature 98.4, pulse 72, blood pressure 127/70, respirations 16, oxygen saturation 99%. GENERAL: No acute distress. LUNGS: Clear to auscultation. Respiratory pattern unlabored. HEENT: EOMI. NECK: Supple. CARDIOVASCULAR: Regular rate and rhythm. No murmur. D5 at half-normal saline with 20 mEq potassium chloride infusing at 75 mL an hour into a peripheral IV. ABDOMEN: Bowel sounds positive, but hypoactive. Pain to gentle palpation. EXTREMITIES: No pitting edema. No clubbing, cyanosis, or marked swelling. NEUROLOGICAL: GCS 15. Nonfocal. LABORATORY DATA: WBCs 11.8, hemoglobin 12.1, hematocrit 36.1, and platelets 219. Sodium 135, potassium 3.7, chloride 101, CO2 of 25, anion gap 12.7, BUN 7, creatinine 0.78, estimated GFR greater than 60, calcium 8.3. IMAGING: No new imaging results. ASSESSMENT AND PLAN: 1. Acute cholecystitis, now status post laparoscopic cholecystectomy on 12/28/2019, by Dr. Jules Cortes. Continue Dilaudid for pain control. The patient is having burping with flatus. Monitor 1 BM today. Tolerating a clear liquid diet fairly well. Diet was not advanced today. 2. Gastritis by EGD. Continue Protonix. Monitor tolerance of diet. 3. Hypertension, controlled. Continue clonidine and p.r.n. IV hydralazine. 4. Lymphoma, stable, the patient to follow up with MD Carmen. 5. Prophylaxis, Protonix and SCDs. Inpatient, billing code [id number], time spent 35 minutes. Dictated by Modesto Peñaloza NP Delta Dent MD HWP/MODL /[id number]
[2019-12-30] MEDS: D5.45%NS/KCL 20MEQ 1,000 ML IV SCH ×2 (03:58→16:51)
[2019-12-30 04:49] LABS: BASOPHILS % 0.3 % (0.0-1.0); EOSINOPHILS # (AUTO) 0.1 (0.0-0.4); EOSINOPHILS % 0.5 % (0.0-6.0); HEMATOCRIT 37.9 % (34.2-44.1); HEMOGLOBIN 12.8 g/dL (12.0-16.0); LYMPHOCYTES # (AUTO) 1.5 (1.0-3.2); LYMPHOCYTES % 15.1 % (18.0-39.1); MEAN CORPUSCULAR HEMOGLOBIN 30.3 pg (28-32); MEAN CORPUSCULAR HGB CONC 33.8 g/dL (31-35); MEAN CORPUSCULAR VOLUME 89.6 fL (81-99); MONOCYTES # (AUTO) 0.8 (0.2-0.8); MONOCYTES % 8.3 % (4.4-11.3); NEUTROPHILS # (AUTO) 7.5 (2.1-6.9); NEUTROPHILS % 75.5 % (38.7-80.0); PLATELET COUNT 218 x10e3/uL (140-360); RED BLOOD COUNT 4.23 x10e6/uL (3.6-5.1); RED CELL DISTRIBUTION WIDTH 12.8 % (11.7-14.4)
[2019-12-30 05:27] LABS: MAGNESIUM 1.5 MG/DL (1.3-2.1); PHOSPHORUS 2.2 MG/DL (2.3-4.7)
[2019-12-30 05:43] LABS: AMYLASE 48 U/L (25-125); LIPASE 15 U/L (8-78)
[2019-12-30 06:29] LABS: ALANINE AMINOTRANSFERASE 85 IU/L (0-55); ALBUMIN 3.9 g/dL (3.5-5.0); ALBUMIN/GLOBULIN RATIO 1.6 (0.8-2.0); ALKALINE PHOSPHATASE 66 IU/L (40-150); ANION GAP 14.7 mmol/L (8-16); BLOOD UREA NITROGEN < 5 mg/dL (7-26); CALCIUM 8.1 mg/dL (8.4-10.2); CARBON DIOXIDE 25 mmol/L (22-29); CHLORIDE 102 mmol/L (98-107); CREATININE, SERUM 0.73 mg/dL (0.57-1.11); EST GLOMERULAR FILTRATION RATE > 60 ML/MIN (60-); GLUCOSE 111 mg/dL (74-118); POTASSIUM 3.7 mmol/L (3.5-5.1); SODIUM 138 mmol/L (136-145)
[2019-12-30 06:30] LABS: BUN/CREATININE RATIO 7 (6-25)
--- NOTE | 2019-12-30 07:00 | NUR ---
RECEIVED PATIENT AWAKE RESTING IN BED. NO S/S OF DISTRESS. BED LOW, WHEELS LOCKED, SIDE RAILS X2. CALL LIGHT IN REACH WILL CONTINUE TO MONITOR PATIENT.
[2019-12-30] MEDS: ONDANSETRON HCL INJ 2MG/ML 2ML 2 MG/ML VIAL IV PRN (07:24)
[2019-12-30] MEDS: HYDROMORPHONE 1MG/1ML INJ IV PRN (07:25)
[2019-12-30] MEDS: PANTOPRAZOLE 40 MG 10ML VIAL IV SCH ×2 (08:28→21:29)
[2019-12-30] MEDS ORDERED: BISACODYL 10 MG SUPP PR ONE (09:00)
--- NOTE | 2019-12-30 10:20 | NUR ---
Pt unavailable at this time. Will follow up as able. ELISHA SIDDIQUI Fermentation Manager Spiritual Care Department O: [phone]
--- NOTE | 2019-12-30 13:07 | NUR ---
Pt unavailable at this time. Will follow up as able. ELISHA SIDDIQUI Bike Technician Spiritual Care Department O: [phone]
--- NOTE | 2019-12-30 17:06 | NUR ---
Nutrition Screen Note RD Recommendation for Physician: - ADAT to goal of 1500 ADA, 2 gm Na, GI Soft Plan of Care: RD following, monitoring for tolerance and adequacy Nutrition reason for involvement: nutrition risk trigger Primary Diagnose(s): abdominal pain, uncontrolled hypertension PMH: CKD3, HTN, DM, HLD, vocal cord cancer, lymphoma Ht: 60 in Wt: 118 lb BMI: 23 kg/m2 IBW: [address] Assessment: 12/29: 74 YOF admitted for abdominal pain and uncontrolled HTN, evaluated today per MST screen. Pt found to have gastritis and cholelithiasis requiring ex lap and cholecystectomy on 12/27. Pt reports eating well until 3 days [employer]. Pt reports tolerating CLD, but appetite remains fair-poor. Pt denies wt loss, reports UBW of 120 lbs. Pt with no questions or concerns at this time. Diet advanced to full liquids, tolerance pending. Labs and meds reviewed. Labs and meds reviewed. Will continue to monitor. Current Diet: clear liquids, advancing to full liquids Malnutrition Evaluation (12/30/19) The patient does not meet criteria for a specified degree of malnutrition at this time. Will re-evaluate at follow-up as appropriate. Diet Education Needs Assessment: Diet education not indicated. Diet tolerance: tolerating CLD, tolerance of full liquids pending Nutrition Care Level: low Signed: Cate Russ RD, LD, [facility]
--- NOTE | 2019-12-31 00:31 | NUR ---
Resting in the bed.stable condition.iv fluid running.no pain voiced.
[2019-12-31 04:00] VITALS: BP 141/80
[2019-12-31 04:54] LABS: BASOPHILS # (AUTO) 0.1 (0.0-0.1); BASOPHILS % 0.8 % (0.0-1.0); EOSINOPHILS # (AUTO) 0.1 (0.0-0.4); HEMATOCRIT 39.2 % (34.2-44.1); HEMOGLOBIN 13.1 g/dL (12.0-16.0); LYMPHOCYTES # (AUTO) 1.5 (1.0-3.2); LYMPHOCYTES % 19.5 % (18.0-39.1); MEAN CORPUSCULAR HEMOGLOBIN 29.9 pg (28-32); MEAN CORPUSCULAR HGB CONC 33.4 g/dL (31-35); MEAN CORPUSCULAR VOLUME 89.5 fL (81-99); MONOCYTES # (AUTO) 0.7 (0.2-0.8); MONOCYTES % 8.4 % (4.4-11.3); NEUTROPHILS # (AUTO) 5.4 (2.1-6.9); PLATELET COUNT 242 x10e3/uL (140-360); RED BLOOD COUNT 4.38 x10e6/uL (3.6-5.1); RED CELL DISTRIBUTION WIDTH 12.8 % (11.7-14.4)
[2019-12-31 05:20] LABS: ALANINE AMINOTRANSFERASE 138 IU/L (0-55); ALBUMIN/GLOBULIN RATIO 1.6 (0.8-2.0); ALKALINE PHOSPHATASE 72 IU/L (40-150); ANION GAP 13.7 mmol/L (8-16); BLOOD UREA NITROGEN 5 mg/dL (7-26); BUN/CREATININE RATIO 7 (6-25); CALCIUM 8.5 mg/dL (8.4-10.2); CARBON DIOXIDE 25 mmol/L (22-29); CHLORIDE 103 mmol/L (98-107); CREATININE, SERUM 0.67 mg/dL (0.57-1.11); EST GLOMERULAR FILTRATION RATE > 60 ML/MIN (60-); GLUCOSE 108 mg/dL (74-118); MAGNESIUM 1.6 MG/DL (1.3-2.1); POTASSIUM 3.7 mmol/L (3.5-5.1); SODIUM 138 mmol/L (136-145)
[2019-12-31] MEDS: D5.45%NS/KCL 20MEQ 1,000 ML IV SCH (05:54)
--- NOTE | 2019-12-31 07:00 | NUR ---
Bed side shift report given to oncoming RN.stable condition.
--- NOTE | 2019-12-31 07:00 | NUR ---
RECEIVED PATIENT RESTING IN BED NO S/S OF DISTRESS. BED LOW, WHEELS LOCKED, SIDE RAILS X2. CALL LIGHT IN REACH WILL CONTINUE TO MONITOR PATIENT.
[2019-12-31 07:28] VITALS: BP 152/87
[2019-12-31] MEDS: PANTOPRAZOLE 40 MG 10ML VIAL IV SCH (08:08)
[2019-12-31 08:10] VITALS: BP 152/87
[2019-12-31] MEDS ORDERED: NON-FORMULARY MEDICATION (Atenolol 25 MG) PO SCH (09:00)
[2019-12-31] MEDS ORDERED: ATENOLOL 50 MG TAB PO SCH (09:00)
[2019-12-31] MEDS ORDERED: TYLENOL # 31 EA PO (09:18)
[2019-12-31] MEDS ORDERED: PANTOPRAZOLE SO40 MG PO (09:25)
--- NOTE | 2019-12-31 09:55 | NUR ---
IMM EXPLAINED TO PT, SIGNED BY PT AND PLACED IN CHART COPY OF IMM TO PT
[2019-12-31 11:00] VITALS: BP 136/85
--- NOTE | 2019-12-31 11:00 | NUR ---
REMOVED PATIENTS ZAVALA. CATHETER TIP INTACT AND PRESSURE DRESSING APPLIED. Addendum: 12/31/19 at 1131 by Brenda Breaux RN REMOVED PATIENTS IV. CATHETER TIP INTACT AND PRESSURE DRESSING APPLIED.
--- NOTE | 2019-12-31 11:26 | NUR ---
PATIENT DISCHARGED FROM FACILITY IN STABLE CONDITION. GATHERED ALL PERSONAL BELONGINGS, DISCHARGE INSTRUCTIONS, AND FOLLOW UP INFORMATION.
--- NOTE | 2020-01-01 05:17 | Discharge Summary ---
ADMISSION DIAGNOSES: Abdominal pain with nausea and vomiting, hypertension, history of vocal cord cancer and lymphoma. DISCHARGE DIAGNOSES: Abdominal pain with nausea and vomiting, hypertension, history of vocal cord cancer and lymphoma, cholelithiasis and cholecystitis, gastritis, and esophagitis. HISTORY: Hypertension, vocal cord cancer, and lymphoma. SURGICAL HISTORY: Noncontributory. FAMILY HISTORY: Noncontributory. SOCIAL HISTORY: Noncontributory. HOSPITAL COURSE: A 74-year-old female admits with complaints of abdominal pain, nausea and vomiting. The patient followed up with GI outpatient two weeks ago and Protonix was given. The patient reported she still having reflux. On admission CT of the abdomen and pelvis showed no acute abdominal pelvic abnormalities. No bowel dilation or evidence of obstruction. Chest x-ray showed lungs well inflated and grossly clear. Ultrasound of the gallbladder showed gallbladder filled with stones and sludge, however, no sonographic evidence to suggest acute cholecystitis. HIDA scan showed no emptying of the gallbladder during infusion, which supported chronic cholecystitis/gallbladder dyskinesia. The patient was taken for an EGD on 12/26. The EGD found distal esophagitis small sliding hiatal hernia and gastritis. The patient was started on Protonix since that did not explain the patient's pain, the patient also had a surgery consulted and was taken for a laparoscopic cholecystectomy on 12/28/2019. The patient tolerated the procedure well. At time of discharge, she is tolerating diet and pain is controlled. She will continue her use of Protonix and Tylenol No. 3 for pain. She will follow up with primary care in surgery in 1 to 2 weeks. The patient understands discharge instructions and agrees to plan, vital signs stable, patient afebrile. Dictated by Tri Garcia NP Delta Dent MD MAURILIO/MODL /[id number]
== END 2019-12-31 11:26 | disposition home or self-care (01) | DRG 418 ==
LOC: FSED 19:15 → ERHOLD 20:45 → MED/SURG2 22:55 → OBSVTOIN 12-28 11:20 → MED/SURG 12-28 12:12
PROVIDERS: ADMIT Internal Medicine; ATTEND Internal Medicine
PROC: 0DB78ZX Excision of Stomach, Pylorus, Via Natural or Artificial Opening Endoscopic, Diagnostic (ICD-10-PCS; 2019-12-27)
PROC: 0FT44ZZ Resection of Gallbladder, Percutaneous Endoscopic Approach (ICD-10-PCS; principal; 2019-12-28 10:00)
DX: K80.12 Calculus of gallbladder with acute and chronic cholecystitis without obstruction (principal); C85.81 Other specified types of non-Hodgkin lymphoma, lymph nodes of head, face, and neck; K21.9 Gastro-esophageal reflux disease without esophagitis; K20.9 Esophagitis, unspecified; K29.70 Gastritis, unspecified, without bleeding; I10 Essential (primary) hypertension; Z11.59 Encounter for screening for other viral diseases
CPT/HCPCS: 36415; 43239; 71045; 74176; 76705; 78227; 80048; 80053; 80076; 82150; 83630; 83690; 83735; 83993; 84100; 84484; 85025; 87045; 87177; 88304; 88305; 88312; 93005; 99284; A9537; C1766; G0378; J0690; J1100; J1170; J1885; J2001; J2250; J2270; J2405; J3010; J7030; U0002

== ENCOUNTER → 2020-05-19 | Day surgery (SDC) | payer MEDICARE ==
[2020-05-14 09:13] LABS: BASOPHILS # (AUTO) 0.1 (0.0-0.1); BASOPHILS % 0.8 % (0.0-1.0); EOSINOPHILS # (AUTO) 0.2 (0.0-0.4); EOSINOPHILS % 3.4 % (0.0-6.0); HEMOGLOBIN 13.1 g/dL (12.0-16.0); LYMPHOCYTES # (AUTO) 1.8 (1.0-3.2); LYMPHOCYTES % 28.1 % (18.0-39.1); MEAN CORPUSCULAR HEMOGLOBIN 29.8 pg (28-32); MEAN CORPUSCULAR HGB CONC 32.8 g/dL (31-35); MEAN CORPUSCULAR VOLUME 91.1 fL (81-99); MONOCYTES # (AUTO) 0.5 (0.2-0.8); MONOCYTES % 7.1 % (4.4-11.3); NEUTROPHILS # (AUTO) 3.9 (2.1-6.9); NEUTROPHILS % 60.3 % (38.7-80.0); PLATELET COUNT 230 x10e3/uL (140-360); RED BLOOD COUNT 4.39 x10e6/uL (3.6-5.1); RED CELL DISTRIBUTION WIDTH 13.5 % (11.7-14.4)
[~2020-05-19] MED LIST: ASPIRIN81 MG PO; ATENOLOL25 MG PO; HYDROCORTISONE ACETATE 25 MG/SUPP.RECT SUPP RC ONE; HYDROCORTISONE ACETATE 25 MG/SUPP.RECT SUPP RC SCH; PANTOPRAZOLE SO40 MG PO; TYLENOL # 31 EA PO
[2020-05-19 11:55] VITALS: BP 101/76
== END | disposition home or self-care (01) ==
LOC: OR 08:28
PROVIDERS: ATTEND Internal Medicine Gastroenterology
DX: K62.89 Other specified diseases of anus and rectum (principal); D12.4 Benign neoplasm of descending colon; K57.30 Diverticulosis of large intestine without perforation or abscess without bleeding; K64.8 Other hemorrhoids; K21.9 Gastro-esophageal reflux disease without esophagitis; R49.0 Dysphonia; I10 Essential (primary) hypertension; I25.10 Atherosclerotic heart disease of native coronary artery without angina pectoris; I11.0 Hypertensive heart disease with heart failure; I50.9 Heart failure, unspecified; Z88.8 Allergy status to other drugs, medicaments and biological substances; Z01.810 Encounter for preprocedural cardiovascular examination; Z01.812 Encounter for preprocedural laboratory examination; Z20.822 Contact with and (suspected) exposure to COVID-19; Z79.82 Long term (current) use of aspirin; Z85.72 Personal history of non-Hodgkin lymphomas; Z92.21 Personal history of antineoplastic chemotherapy; Z92.3 Personal history of irradiation; Z85.21 Personal history of malignant neoplasm of larynx
CPT/HCPCS: 36415; 45378; 45380; 45385; 85025; 88305; 93005; U0002

== ENCOUNTER → 2021-06-27 | Outpatient (CLI) | payer MEDICARE ==
[~2021-06-27] MED LIST changes: -HYDROCORTISONE ACETATE 25 MG/SUPP.RECT SUPP RC ONE; -HYDROCORTISONE ACETATE 25 MG/SUPP.RECT SUPP RC SCH
== END ==
LOC: MRI 10:30
PROVIDERS: ATTEND Internal Medicine Gastroenterology
DX: R20.8 Other disturbances of skin sensation (principal)
CPT/HCPCS: 72195